=== PATIENT | female | born 1965 | race Two or more races ===

== ENCOUNTER 2021-10-05 11:51 | Emergency (ER) | payer MEDICAID, OTHER ==
[~2021-10-05] VITALS: Ht 172.7 cm; Wt 75.7 kg
[2021-10-05 11:56] VITALS: BP 141/62
[2021-10-05 12:49] LABS: Urine Bacteria FEW /hpf (None Seen); Urine Blood 3+ /uL (Negative); Urine Specific Gravity 1.001 (1.001-1.035); Urine WBC 51 /hpf (0 - 5)
== END 2021-10-05 13:23 | disposition home or self-care (01) ==
LOC: ER 11:51
DX: N39.0 Urinary tract infection, site not specified (principal)
CPT/HCPCS: 81001